=== PATIENT | male | born 1990 ===

== ENCOUNTER 2022-10-24 16:50 | Emergency (ER) | payer SELFPAY ==
[~2022-10-24] VITALS: Ht 172.7 cm; Wt 68.2 kg
[2022-10-24 16:50] VITALS: BP 121/79
[2022-10-24] MEDS ORDERED: SUBOXONE PO (16:59)
== END 2022-10-24 21:31 | disposition left against medical advice (07) ==
LOC: EMS 16:52
DX: Z53.21 Procedure and treatment not carried out due to patient leaving prior to being seen by health care provider (principal)
CPT/HCPCS: 99281; Z7502